=== PATIENT | female | born 1975 | race Caucasian/White ===

== ENCOUNTER 2016-10-04 07:45 | Emergency (ER) | payer OTHER ==
[~2016-10-04] VITALS: Ht 167.6 cm; Wt 103.7 kg
[~2016-10-04 07:45] MED LIST: ALDA100T PO; CHOL5000 PO; HYDR-3534 PO; IBUP800T23 PO; LEVO.05 PO; METH750T PO; MULT-120 PO; ZYRT10TA PO
[2016-10-04 07:50] VITALS: BP 159/105; PULSE 94; RESP 16; TEMP 98.5; O2SAT 98
[2016-10-04] MEDS ORDERED: NEUR300C PO (08:00)
[2016-10-04] MEDS ORDERED: ZITHTAB PO (08:27)
--- NOTE | 2016-10-04 08:35 | PD ---
HPI Chief Complaint: Cold / Flu Symptoms Time Seen by Provider: 08:22 Travel History International Travel<30 days: No Contact w/Intl Traveler<30days: No Traveled to known affect area: No History of Present Illness HPI This patient says that she has a sinus infection and requesting Zithromax antibiotic prescription. She says she takes it every 6-8 weeks when she gets an infection. Denies fever or injury. She's had some runny nose congestion and pain in the right cheek area. She says this is her typical sinus infection. Duration 3 days. PFSH Past Medical History Hx Anticoagulant Therapy: No Autoimmune Disease: No Anxiety: Yes Depression: Yes Heart Rhythm Problems: Yes (HX TACHYCARDIA) Chemotherapy: No Cerebrovascular Accident: No Diabetes: No Diminished Hearing: No Endocrine: Yes Gastrointestinal Disorders: Yes (GI BLEED) GERD: Yes Genitourinary: No Headaches: Yes Hepatitis: No Hiatal Hernia: No Herniated Disk: Yes (T-SPINE) Hypertension: Yes Immune Disorder: No Kidney Stones: Yes Musculoskeletal: Yes (HERNIATED DISCS T2,3,4) Neurologic: Yes (HX OF SMALL POCKETS OF FLUID ON L SIDE OF BRAIN--RESOLVED) Psychiatric: No Reproductive: Yes (PCOS) Respiratory: No Immunizations Current: Yes Migraines: Yes Thyroid Disease: Yes Ulcer: Yes PNEUMOCCOCAL Vaccine (Year): 2 ?: Not LMP: 09/01/12 - HYSTO Menopausal: Yes : 4 Para: 3 : 1 Ovarian Cysts: Yes Dilation and Curettage (D&C): Yes (1993) Tubal Ligation: Yes (OCT 2004) Past Surgical History Abdominal Surgery: Yes (CHOLECYSTECTOMY 2001) AICD: No Body Medical Devices: L BREAST CLIP Cholecystectomy: Yes Gynecologic Surgery: Yes (HYSTERECTOMY 08/2012) Hysterectomy: Yes Joint Replacement: No Oral Surgery: Yes (TWO TEETH REMOVED) Pacemaker: No Thoracic Surgery: Yes (L BREAST BIOPSY) Other Surgery: Yes (BENIGN FIBROUS LT BREAST MASS) Social History Alcohol Use: Yes (RARELY) Tobacco Use: No (QUIT APRIL 2016) Substance Use: No Allergies-Medications (Allergen,Severity, Reaction): Coded Allergies: Amoxicillin (Verified Allergy, Severe, ANGIOEDEMA, 10/04/16) Lisinopril (Verified Allergy, Severe, FACIAL/TONGUE SWELLING, 10/04/16) Sulfa (Verified Allergy, Severe, Rash, 10/04/16) Cipro (Verified Allergy, Intermediate, Nausea/Vomiting, 10/04/16) Dilaudid (Verified Allergy, Unknown, VOMITING, 10/04/16) Metformin (Verified Allergy, Unknown, UNKNOWN, 10/04/16) Morphine (Verified Adverse Reaction, Intermediate, VOMITS, 10/04/16) Zofran (Verified Adverse Reaction, Intermediate, Headache, 10/04/16) "IT GIVES ME A TERRIBLE HEADACHE" STATED 11/13/15 Lortab (Verified Adverse Reaction, Unknown, constipation, 10/04/16) Reported Meds & Prescriptions Reported Meds & Active Scripts Active Zithromax Z-Delgado (Azithromycin) 250 Mg Dspk 250 Mg PO DIRECTED 500 MG (2 tabs) day 1, then 1 tab days 2-5. Reported Neurontin (Gabapentin) 300 Mg Cap 300 Mg PO TID Ibuprofen 800 Mg Tab 800 Mg PO TID Synthroid (Levothyroxine Sodium) 50 Mcg Tab 50 Mcg PO DAILY Aldactone (Spironolactone) 100 Mg Tab 100 Mg PO DAILY Multivitamin Women (Multiple Vitamins W/ Minerals) 1 Tab Tab 1 Tab PO DAILY Methocarbamol 750 Mg Tab 750 Mg PO TID PRN Vitamin D3 (Cholecalciferol) 5,000 Unit Cap 5,000 Units PO DAILY Zyrtec Allergy (Cetirizine HCl) 10 Mg Tab 10 Mg PO DAILY Review of Systems General / Constitutional: No: Fever Respiratory: No: Cough Gastrointestinal: No: Vomiting, Abdominal Pain Physical Exam Narrative NECK: Symmetrical appearance, midline trachea. No mass or crepitus. Thyroid without enlargement, tenderness, or mass. SKIN: Inspection shows no rash or ulcers. Palpation shows no induration or nodules. Throat clear TMs normal Data Data Last Documented VS Vital Signs Date Time Temp Pulse Resp B/P Pulse Ox O2 Delivery O2 Flow Rate FiO2 10/04/16 07:50 98.5 94 16 159/105 98 MDM Medical Decision Making Medical Screen Exam Complete: Yes Emergency Medical Condition: Yes Medical Record Reviewed: Yes Differential Diagnosis Rhinitis, sinusitis, pharyngitis Narrative Course I have reviewed the patient's electronic medical record. Patient is a frequent visitor to the ER, 11 visits last year. Many are for sinus complaints. Patient does not appear receptive to education regarding viral versus bacterial infection. She specifically wants antibiotics and says that is what helps her. I have reviewed the patient's electronic medical record. She is a frequent visitor to the ER, 11 visits last year. Many are for sinus complaints. Patient specifically wants Zithromax. I wrote her a Z-Delgado and recommended she follow up with her physician Diagnosis Primary Impression: Sinusitis, acute maxillary Qualified Code: J01.01 - Acute recurrent maxillary sinusitis Additional Instructions: The patient was advised to follow up with their physician and return if they worsen. Med/Other Pt SpecificInfo: Prescription(s) given Scripts Azithromycin (Zithromax Z-Delgado)250 Mg [id number] Mg PO DIRECTED #1 DSPK Ref 0 500 MG (2 tabs) day 1, then 1 tab days 2-5. Prov:Curtis Weinstein MD 10/04/16 Disposition: 01 DISCHARGE HOME Condition: Stable Curtis Weinstein MD Oct 04, 2016 08:35
[2016-10-04 08:40] VITALS: BP 152/89
== END 2016-10-04 08:41 | disposition home or self-care (01) ==
LOC: PHEFT 07:45
DX: J01.00 Acute maxillary sinusitis, unspecified (principal); I10 Essential (primary) hypertension; F41.8 Other specified anxiety disorders
CPT/HCPCS: 99283

== ENCOUNTER 2016-12-15 04:56 | Emergency (ER) | payer OTHER ==
[~2016-12-15] VITALS: Ht 167.6 cm; Wt 106.7 kg
[~2016-12-15 04:56] MED LIST changes: -HYDR-3534 PO; +NEUR300C PO; +ZITHTAB PO
[2016-12-15 05:02] VITALS: BP 146/95; PULSE 81; RESP 16; TEMP 98; O2SAT 96
[2016-12-15 05:10] VITALS: BP 146/95; PULSE 81; RESP 16; TEMP 98; O2SAT 96
[2016-12-15] MEDS ORDERED: AZITHROMYCIN 250 MG TAB PO ONE (05:45)
[2016-12-15] MEDS ORDERED: ZITHTAB PO (05:48)
[2016-12-15 05:50] VITALS: BP 146/90
--- NOTE | 2016-12-15 05:50 | PD ---
HPI Chief Complaint: ENT Complaint Time Seen by Provider: 05:36 Travel History International Travel<30 days: No Contact w/Intl Traveler<30days: No Traveled to known affect area: No History of Present Illness HPI 41-year-old female presents to the emergency department by private transportation for complaint of possible recurrent sinus infection. Patient states she has frequent acute sinus infections with history of chronic sinusitis. Patient is scheduled to have sinus surgery 12/30/16. Patient has had low-grade temperature elevation with increasing sinus pressure and pain to the right frontal and maxillary and ethmoid sinus distribution which is her typical side of involvement. Patient also has earache. Patient hasn't taking [id number] ibuprofen and cold/sinus medication with some symptom relief but presents now for antibiotic prescription. Patient states she planned to see her managing physician today but due to the pain awakening her from sleep she presents now for further evaluation. No sore throat no nausea no vomiting no chest pain no shortness of breath no productive cough occasional wheezing due to her environmental allergies. Patient does not have history of asthma. No report of abdominal pain flank pain urinary symptoms. Patient denies as she is status post hysterectomy as of 2011. No report of epistaxis. PFSH Past Medical History Narrative Medical Anxiety depression tachycardia GERD headaches hypertension rhinosinusitis sinusitis deviated septum kidney stones polycystic ovary syndrome hypothyroidism peptic ulcer disease tubal ligation and D&C cholecystectomy hysterectomy and breast biopsy no tobacco use Hx Anticoagulant Therapy: No Autoimmune Disease: No Anxiety: Yes Depression: Yes Heart Rhythm Problems: Yes (HX TACHYCARDIA) Chemotherapy: No Cerebrovascular Accident: No Diabetes: No Diminished Hearing: No Endocrine: Yes Gastrointestinal Disorders: Yes (GI BLEED) GERD: Yes Genitourinary: No Headaches: Yes Hepatitis: No Hiatal Hernia: No Herniated Disk: Yes (T-SPINE) Hypertension: Yes Immune Disorder: No Kidney Stones: Yes Musculoskeletal: Yes (HERNIATED DISCS T2,3,4) Neurologic: Yes (HX OF SMALL POCKETS OF FLUID ON L SIDE OF BRAIN--RESOLVED) Psychiatric: No Reproductive: Yes (PCOS) Respiratory: No Immunizations Current: Yes Migraines: Yes Thyroid Disease: Yes Ulcer: Yes PNEUMOCCOCAL Vaccine (Year): 2 ?: Not LMP: august 2012 Menopausal: Yes : 4 Para: 3 : 1 Ovarian Cysts: Yes Dilation and Curettage (D&C): Yes (1993) Tubal Ligation: Yes (OCT 2004) Past Surgical History Abdominal Surgery: Yes (CHOLECYSTECTOMY 2001) AICD: No Body Medical Devices: L BREAST CLIP Cholecystectomy: Yes Gynecologic Surgery: Yes (HYSTERECTOMY 08/2012) Hysterectomy: Yes Joint Replacement: No Oral Surgery: Yes (TWO TEETH REMOVED) Pacemaker: No Thoracic Surgery: Yes (L BREAST BIOPSY) Other Surgery: Yes (BENIGN FIBROUS LT BREAST MASS) Social History Alcohol Use: Yes (rarely) Tobacco Use: No (QUIT APRIL 2016) Substance Use: No Allergies-Medications (Allergen,Severity, Reaction): Coded Allergies: Amoxicillin (Verified Allergy, Severe, ANGIOEDEMA, 12/15/16) Lisinopril (Verified Allergy, Severe, FACIAL/TONGUE SWELLING, 12/15/16) Sulfa (Verified Allergy, Severe, Rash, 12/15/16) Cipro (Verified Allergy, Intermediate, Nausea/Vomiting, 12/15/16) Dilaudid (Verified Allergy, Unknown, VOMITING, 12/15/16) Metformin (Verified Allergy, Unknown, UNKNOWN, 12/15/16) Morphine (Verified Adverse Reaction, Intermediate, VOMITS, 12/15/16) Zofran (Verified Adverse Reaction, Intermediate, Headache, 12/15/16) "IT GIVES ME A TERRIBLE HEADACHE" STATED 11/13/15 Lortab (Verified Adverse Reaction, Unknown, constipation, 12/15/16) Reported Meds & Prescriptions Reported Meds & Active Scripts Active Reported Neurontin (Gabapentin) 300 Mg Cap 300 Mg PO TID Ibuprofen 800 Mg Tab 800 Mg PO TID Synthroid (Levothyroxine Sodium) 50 Mcg Tab 50 Mcg PO DAILY Aldactone (Spironolactone) 100 Mg Tab 100 Mg PO DAILY Multivitamin Women (Multiple Vitamins W/ Minerals) 1 Tab Tab 1 Tab PO DAILY Methocarbamol 750 Mg Tab 750 Mg PO TID PRN Vitamin D3 (Cholecalciferol) 5,000 Unit Cap 5,000 Units PO DAILY Zyrtec Allergy (Cetirizine HCl) 10 Mg Tab 10 Mg PO DAILY Review of Systems Except as stated in HPI: all other systems reviewed are Neg General / Constitutional: Positive: Fever, No: Chills HENT: Positive: Congestion (subjective) Cardiovascular: No: Chest Pain or Discomfort Respiratory: No: Shortness of Breath Gastrointestinal: No: Vomiting Genitourinary: No: Flank Pain Musculoskeletal: No: Myalgias, Arthralgias Skin: No Rash Neurologic: No: Dizziness Psychiatric: No: Anxiety Hematologic/Lymphatic: No: Lymph Node Enlargement Physical Exam Narrative GENERAL: Well-developed well-nourished female in no acute distress no respiratory distress SKIN: Warm and dry. HEAD: Normocephalic. EYES: No scleral icterus. No injection or drainage. ENT: Mucous membranes moist airway is patent tympanic membranes were no redness no dullness no loss of landmarks sinuses tender percussion over the frontal and maxillary sinuses on the right. NECK: Supple, trachea midline. No JVD or lymphadenopathy. No meningismus or nuchal rigidity CARDIOVASCULAR: Regular rate and rhythm without murmurs, gallops, or rubs. RESPIRATORY: Breath sounds equal bilaterally. No accessory muscle use. GASTROINTESTINAL: Abdomen soft, non-tender, nondistended. MUSCULOSKELETAL: No cyanosis, or edema. BACK: Nontender without obvious deformity. No CVA tenderness. Data Data Last Documented VS Vital Signs Date Time Temp Pulse Resp B/P Pulse Ox O2 Delivery O2 Flow Rate FiO2 12/15/16 05:15 81 16 12/15/16 05:10 98.0 146/95 96 Orders Azithromycin (Zithromax) (12/15/16 05:45) [facility] Medical Decision Making Medical Screen Exam Complete: Yes Emergency Medical Condition: Yes Medical Record Reviewed: Yes Differential Diagnosis Acute sinusitis, rhinosinusitis, environmental allergies Narrative Course Patient with percussible tenderness to the right frontal and maxillary sinus with recurrent acute on chronic sinus symptoms with subjective fever/low-grade temperature elevation report is scheduled to have sinus surgery 12/30/16. Review of medical records numerous visits for sinus related complaints. Patient presents requesting prescription for antibiotic azithromycin specifically if she states this medication is effective for her symptoms. Concerned that symptoms are more environmental versus are related however patient states that she is scheduled to have surgery in 2 weeks and this is typical of her presentation when she has acute bacterial sinusitis. Patient provided a prescription for azithromycin and first dose of azithromycin provided in the emergency department. 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 Prov:Misa Cabrales MD 12/15/16 Disposition: 01 DISCHARGE HOME Condition: Stable Misa Cabrales MD Dec 15, 2016 05:50
== END 2016-12-15 05:56 | disposition home or self-care (01) ==
LOC: PHED 04:56
DX: J01.00 Acute maxillary sinusitis, unspecified (principal); Z87.891 Personal history of nicotine dependence
CPT/HCPCS: 99283

== ENCOUNTER 2017-01-06 12:42 | Emergency (ER) | payer OTHER ==
[~2017-01-06] VITALS: Ht 167.6 cm; Wt 106.4 kg
[2017-01-06 12:48] VITALS: BP 148/96; PULSE 89; RESP 16; TEMP 98.3; O2SAT 97
--- NOTE | 2017-01-06 13:04 | PD ---
HPI Chief Complaint: ENT Complaint Time Seen by Provider: 12:56 Travel History International Travel<30 days: No Contact w/Intl Traveler<30days: No Traveled to known affect area: No History of Present Illness HPI Patient is a 41-year-old female presenting to emergency evaluation of possible sinusitis. Patient states that she has chronic sinusitis and is having sinus surgery next week with Dr. Cardona. Her present symptoms have been ongoing for 4 -5 days, she reports pressure over the right ethmoid sinus, right ear pressure, a dull headache, she states that she had a low-grade fever this morning. She denies any chest pain, shortness of breath, cough, abdominal pain. PFSH Past Medical History Hx Anticoagulant Therapy: No Autoimmune Disease: No Anxiety: Yes Depression: Yes Chemotherapy: No Cerebrovascular Accident: No Diabetes: No Diminished Hearing: No Gastrointestinal Disorders: Yes (GI BLEED) GERD: Yes Genitourinary: No Hepatitis: No Hiatal Hernia: No Herniated Disk: Yes (T-SPINE) Hypertension: Yes Immune Disorder: No Kidney Stones: Yes Psychiatric: No Reproductive: Yes (PCOS) Respiratory: No Immunizations Current: Yes Migraines: Yes Thyroid Disease: Yes Ulcer: Yes PNEUMOCCOCAL Vaccine (Year): 2 Menopausal: Yes : 4 Para: 3 : 1 Ovarian Cysts: Yes Dilation and Curettage (D&C): Yes (1993) Tubal Ligation: Yes (OCT 2004) Past Surgical History AICD: No Body Medical Devices: L BREAST CLIP Cholecystectomy: Yes Hysterectomy: Yes Joint Replacement: No Pacemaker: No Other Surgery: Yes (BENIGN FIBROUS LT BREAST MASS) Social History Alcohol Use: Yes (rarely) Tobacco Use: No (QUIT APRIL 2016) Substance Use: No Allergies-Medications (Allergen,Severity, Reaction): Coded Allergies: Amoxicillin (Verified Allergy, Severe, ANGIOEDEMA, 01/06/17) Lisinopril (Verified Allergy, Severe, FACIAL/TONGUE SWELLING, 01/06/17) Sulfa (Verified Allergy, Severe, Rash, 01/06/17) Cipro (Verified Allergy, Intermediate, Nausea/Vomiting, 01/06/17) Dilaudid (Verified Allergy, Unknown, VOMITING, 01/06/17) Metformin (Verified Allergy, Unknown, UNKNOWN, 01/06/17) Morphine (Verified Adverse Reaction, Intermediate, VOMITS, 01/06/17) Zofran (Verified Adverse Reaction, Intermediate, Headache, 01/06/17) "IT GIVES ME A TERRIBLE HEADACHE" STATED 11/13/15 Lortab (Verified Adverse Reaction, Unknown, constipation, 01/06/17) Reported Meds & Prescriptions Reported Meds & Active Scripts Active Reported Neurontin (Gabapentin) 300 Mg Cap 300 Mg PO TID Synthroid (Levothyroxine Sodium) 50 Mcg Tab 50 Mcg PO DAILY Aldactone (Spironolactone) 100 Mg Tab 100 Mg PO DAILY Methocarbamol 750 Mg Tab 750 Mg PO TID PRN Zyrtec Allergy (Cetirizine HCl) 10 Mg Tab 10 Mg PO DAILY Review of Systems Except as stated in HPI: all other systems reviewed are Neg General / Constitutional: Positive: Fever Eyes: No: Blurred Vision, Visual changes HENT: Positive: Headaches, Earache Cardiovascular: No: Chest Pain or Discomfort Respiratory: No: Cough, Shortness of Breath Gastrointestinal: No: Nausea, Vomiting, Diarrhea, Abdominal Pain Neurologic: No: Weakness, Dizziness, Syncope Physical Exam Narrative GENERAL: Well-nourished, well-developed patient. SKIN: Focused skin assessment warm/dry. HEAD: Normocephalic. Tenderness to palpation over right ethmoid sinus. EARS: Bilateral pinnae and external canals appear within normal limits. Bilateral tympanic membranes without erythema, dullness or perforation. MOUTH: Mucous membranes moist, no lesions, tongue and gums appear normal. EYES: No scleral icterus. No injection or drainage. NECK: Supple, trachea midline. No JVD or lymphadenopathy. CARDIOVASCULAR: Regular rate and rhythm without murmurs, gallops, or rubs. RESPIRATORY: Breath sounds equal bilaterally. No accessory muscle use. GASTROINTESTINAL: Abdomen soft, non-tender, nondistended. MUSCULOSKELETAL: No cyanosis, or edema. BACK: Nontender without obvious deformity. No CVA tenderness. Data Data Last Documented VS Vital Signs Date Time Temp Pulse Resp B/P Pulse Ox O2 Delivery O2 Flow Rate FiO2 01/06/17 12:48 98.3 89 16 148/96 97 MDM Medical Decision Making Medical Screen Exam Complete: Yes Emergency Medical Condition: Yes Interpretation(s) Vital Signs Date Time Temp Pulse Resp B/P Pulse Ox O2 Delivery O2 Flow Rate FiO2 01/06/17 12:48 98.3 89 16 148/96 97 Differential Diagnosis Viral URI versus sinusitis versus migraine versus otitis media versus otitis externa versus other Narrative Course Patient is a 41-year-old female presented to emergency department for evaluation of 4-5 days of headache, right sinus pressure, right ear pressure. Patient has a history of chronic sinusitis secondary to deviated septum which she states she'll be having surgery to repair next week with Dr. Cardona. Vital signs are stable, she is afebrile currently. She with right with a prescription for clindamycin due to her penicillin allergy. Also be provided with a prescription for fluticasone nasal spray. She is encouraged follow-up with her primary doctor and Dr. Cardona as scheduled. She is encouraged to return to emergency department for any new or worsening symptoms. Patient verbalized understanding of these instructions. Patient is stable for discharge. Diagnosis Primary Impression: Sinusitis Qualified Code: J32.2 - Ethmoid sinusitis, unspecified chronicity Referrals: Maurisio Cardona MD Primary Care Physician Patient Instructions: General Instructions, Sinusitis (ED) Additional Instructions: Follow-up with Dr. Cardona as scheduled Follow-up with your primary doctor Return to emergency department for any new or worsening symptoms Med/Other Pt SpecificInfo: Prescription(s) given Scripts Fluticasone Nasal [place] 50 Mcg/Act [id number] Mcg EACH NARE DAILY #1 BOTTLE Ref 0 50 mcg/spray Prov:Iliana Escalona 01/06/17 Clindamycin 150 Mg [id number] Mg PO Q8HR 10 Days Ref 0 Prov:Iliana Escalona 01/06/17 Disposition: 01 DISCHARGE HOME Condition: Stable Iliana Escalona Jan 06, 2017 13:04
[2017-01-06] MEDS ORDERED: CLIN1CAP5 PO (13:14)
[2017-01-06] MEDS ORDERED: FLUT50SP EACH NARE (13:14)
== END 2017-01-06 13:44 | disposition home or self-care (01) ==
LOC: PHEFT 12:42
DX: J32.9 Chronic sinusitis, unspecified (principal); K21.9 Gastro-esophageal reflux disease without esophagitis; I10 Essential (primary) hypertension; Z87.442 Personal history of urinary calculi; E28.2 Polycystic ovarian syndrome; Z87.891 Personal history of nicotine dependence
CPT/HCPCS: 99283

== ENCOUNTER 2017-01-13 06:14 | Observation (INO) | payer OTHER ==
[~2017-01-13] VITALS: Ht 167.6 cm; Wt 110.6 kg
[~2017-01-13 06:14] MED LIST changes: -CHOL5000 PO; +CLIN1CAP5 PO; +FLUT50SP EACH NARE; -IBUP800T23 PO; -MULT-120 PO; -ZITHTAB PO
[2017-01-13 06:50] VITALS: BP 172/103; PULSE 87; RESP 16; TEMP 97.8; O2SAT 97
[2017-01-13] MEDS ORDERED: LACTATED RINGER'S 1000 ML INJ 1,000 ML ONE (06:59)
[2017-01-13] MEDS ORDERED: CLINDAMYCIN PHOS 600 MG/4 ML VIAL ONE (07:01)
[2017-01-13] MEDS ORDERED: SODIUM CHLORIDE 0.9% INJ 100 ML ONE (07:02)
[2017-01-13] MEDS ORDERED: LIDOCAINE 1%/EPINEPHrine 1:100,000 SOLN 30 ML VIAL ONE (07:06)
[2017-01-13] MEDS ORDERED: OXYMETAZOLINE HCL 0.05% 15 ML NASAL SPRAY ONE ×2 (07:06)
[2017-01-13] MEDS ORDERED: VITA400C28 (07:17)
[2017-01-13] MEDS ORDERED: ACETAMINOPHEN 1000 MG/100 ML VIAL IV ONE (07:27)
[2017-01-13] MEDS: BACITRACIN TOP OINT 15 GM TUBE ONE ×2 (08:06→09:10)
[2017-01-13] MEDS ORDERED: CLINDAMYCIN 600 MG/NS 100 ML IV ONE ×2 (11:15)
[2017-01-13] MEDS ORDERED: ONDANSETRON HCL 4 MG/2 ML VIAL IV PRN (11:15)
[2017-01-13] MEDS ORDERED: PROMETHAZINE INJ 25 MG/ML VIAL ONE (11:26)
[2017-01-13] MEDS ORDERED: VITA100064 PO (11:33)
[2017-01-13] MEDS ORDERED: PROPOFOL 200 MG/20 ML AMP IV ONE (12:00)
[2017-01-13] MEDS: ACETAMINOPHEN/HYDROcodone 325 MG/5 MG TAB PO PRN ×3 (13:34→21:56)
[2017-01-13] MEDS: GABAPENTIN 300 MG CAP PO SCH ×2 (13:34→17:31)
[2017-01-13] MEDS: LACTATED RINGER'S 1000 ML INJ 1,000 ML IV SCH ×2 (13:36→22:58)
[2017-01-13 14:00] VITALS: BP 156/86; PULSE 86; RESP 20; TEMP 97.2; O2SAT 97
[2017-01-13 15:46] VITALS: O2SAT 97
[2017-01-13 16:00] VITALS: BP 142/86; PULSE 94; RESP 20; TEMP 98.4; O2SAT 96
[2017-01-13] MEDS: CLINDAMYCIN 600 MG/NS 100 ML IV SCH ×4 (16:39→22:58)
[2017-01-13 20:00] VITALS: BP 140/91; PULSE 103; RESP 20; TEMP 96.5; O2SAT 94
[2017-01-13 20:50] VITALS: O2SAT 95
[2017-01-14] VITALS: BP 128/94; PULSE 96; RESP 20; TEMP 96.2; O2SAT 97
[2017-01-14] MEDS: ACETAMINOPHEN/HYDROcodone 325 MG/5 MG TAB PO PRN (02:53)
[2017-01-14 04:00] VITALS: BP 152/88; PULSE 85; RESP 20; TEMP 96; O2SAT 98
[2017-01-14] MEDS ORDERED: LEVOTHYROXINE SODIUM 50 MCG TAB PO SCH (06:00)
[2017-01-14] MEDS: GABAPENTIN 300 MG CAP PO SCH (07:55)
--- NOTE | 2017-01-14 12:57 | MP ---
cc: MIMI CARDONA M.D. DATE OF SURGERY: January 13, [address] Mimi Cardona. PREOPERATIVE DIAGNOSIS 1. Chronic pansinusitis. 2. Nasal airway obstruction. 3. Nasoseptal deviation. 4. Hypertrophy of inferior turbinates. POSTOPERATIVE DIAGNOSIS 1. Chronic pansinusitis. 2. Nasal airway obstruction. 3. Nasoseptal deviation. 4. Hypertrophy of inferior turbinates. OPERATION PERFORMED 1. Open repair nasal septal fracture. 2. Bilateral submucosal resection of inferior turbinates. 3. Bilateral endoscopic total ethmoidectomy. 4. Bilateral endoscopic maxillary antrostomy with removal of maxillary sinus tissue. 5. Bilateral endoscopic sphenoidotomy with removal of sphenoid sinus contents. 6. Bilateral endoscopic exploration of frontal sinus ducts with balloon sinuplasty dilation. INDICATIONS Documented in the history and physical. DESCRIPTION OF OPERATION The patient was taken to OR #2 and placed in the supine position. Following induction of general anesthesia and intubation the nose was packed bilaterally with cotton pledgets saturated in 0.05% Oxymetazoline. Septal mucosa and inferior turbinates were injected with a total of 14 mL of 2% Xylocaine with epinephrine 1:100,000 and she was then prepped and draped for surgery. The packing was removed and a selwyn-transfixion incision was made in the left nasal vestibule. This incision, the mucosa of septum was elevated bilaterally as far as the junction of the bony cartilaginous septum and this revealed the quadrangular cartilage which showed evidence of severe deviation bilaterally to the right, inferiorly into the left, posteriorly at the junction with bone. A cumulative area of 2 x 3 cm was removed preserving 1.5 cm dorsal and caudal cartilaginous struts. Mucosa was then elevated from the bony septum and the maxillary crest and these were removed using Luis Holden forceps on the bony septum and a 6-mm Afton chisel on the maxillary crest. The anterior nasal spine was preserved during this process. The incision was then closed with a running suture of 4-0 Chromic and the mucosal layers of septum were approximated to each other with a quilting stitch of 4-0 plain gut. The inferior turbinates were addressed next, they were fractured out medially and stab incisions were made along their inferior surfaces and through these incisions submucosal soft tissue was reduced using a curette and preserving the conchal bone. The incision was then cauterized using suction Bovie at 35 arambula and the remnants of the inferior turbinates were then re-lateralized to the lateral nasal wall. From this point forward the operation was completed using endoscopic visualization beginning with further injection of the lidocaine and epinephrine into the attachments of the middle turbinates, the uncinate processes and the anterior and posterior ethmoid cells. Additional 10 mL was injected. The left side was addressed first beginning with amputation of the middle turbinate using through cutting Blakesley forceps and the power microdebrider. This was carried back to the posterior attachment of the middle turbinate. Next, the uncinate process was removed with a sickle knife exposing the ethmoid bulla and the ethmoid bulla was then bluntly penetrated using Blakesley forceps and then the anterior and posterior cells were exenterated with blunt and power dissection back as far as the sphenoid rostrum. The basal lamella of the middle turbinate was reduced medially to laterally to allow access into the posterior ethmoid cells. The superior turbinate was preserved during this process. When this was completed the maxillary ostium was enlarged using Stammberger forceps and the power debrider and the cavity was debrided of thick polypoid tissue and mucopurulent material. The sphenoid sinus was addressed next. The duct was probed using a #10 suction and it was also entered through the rostrum in the posterior ethmoid. ___ then were enlarged with the power microdebrider and thickened inflamed mucosa was then debrided from the sphenoid sinus using a Blakesley forceps. The left sinus cavities were then irrigated with iced saline and the cavities were packed with cotton pledgets saturated in Oxymetazoline. They remained in place while the right side was operated in the same fashion beginning with amputation of middle turbinate followed by uncinectomy and exenteration of the anterior and posterior ethmoids. The right maxillary ostium was enlarged with Stammberger forceps and the power debrider and the cavity was debrided of the inflamed mucosa lining the nance of the right maxillary sinus. The sphenoid sinus ostium was enlarged through the natural ostium using a #10 suction and the power debrider and the cavity was debrided of inflamed mucosa. This was all included in the specimen labeled right sinus contents. This side was then also irrigated and was packed with cotton pledgets saturated in Oxymetazoline. Both sides were packed while the frontal duct dilations were completed using the Acclarent balloon technique. The guidewire was advanced into the left frontal duct and verified to be in the left frontal sinus. The balloon was then advanced over the wire and inflated to a pressure of 12 atmospheres at the superior limit at the midpoint and inferiorly at the junction with the anterior ethmoids. The balloon was then removed and the duct was verified patent all the way into the frontal sinus. The small fragments of bone and soft tissue were removed from the duct to maintain patency. The right side was then operated in the same fashion with dilation of the balloon at three levels. This was also debrided of some bone and soft tissue fragments. The cottonoid pledgets then were removed. The sinuses once again irrigated and suctioned and then filled with Stammberger sinus foam into the sphenoid, ethmoid and maxillary sinuses bilaterally. The inferior nasal vault was filled with Merocel tampons coated in bacitracin ointment and the procedure was terminated. The patient was reversed from anesthesia and taken to recovery in good condition. There were no complications. Blood loss was 300 mL. MD DEBBIE Arreguin/MARÍA ELENA /1:11 PM /12:32 PM
== END 2017-01-14 08:50 | disposition home or self-care (01) ==
LOC: PHSDC 06:14 → PH3B 13:44
PROVIDERS: ADMIT Otolaryngology; ATTEND Otolaryngology
DX: J32.4 Chronic pansinusitis (principal); J98.8 Other specified respiratory disorders; J34.2 Deviated nasal septum; J34.3 Hypertrophy of nasal turbinates
CPT/HCPCS: 00160; 30140; 30520; 31255; 31267; 31288; 31296; 88305; 88311; 94762; G0378; J0131; J2550; J3010; J7120

== ENCOUNTER 2017-01-17 21:52 | Emergency (ER) | payer OTHER ==
[~2017-01-17] VITALS: Ht 167.6 cm; Wt 107.8 kg
[~2017-01-17 21:52] MED LIST changes: -FLUT50SP EACH NARE; +VITA100064 PO
[2017-01-17 21:55] VITALS: BP 158/99; PULSE 110; RESP 22; TEMP 98.4; O2SAT 100
--- NOTE | 2017-01-17 22:13 | PD ---
HPI Chief Complaint: Fever Time Seen by Provider: 22:01 Travel History International Travel<30 days: No Contact w/Intl Traveler<30days: No Traveled to known affect area: No History of Present Illness HPI The patient is a 41-year-old female that had septoplasty surgery on Thursday, 3 days ago. She states that she has had low-grade fever since . She completed her antibiotics on Thursday, this was clindamycin. She is allergic to amoxicillin. She has a slight cough. She has generalized myalgias. She denies any nausea, vomiting or diarrhea. She denies any dysuria, frequency or urgency or flank pain. PFSH Past Medical History Hx Anticoagulant Therapy: No Arthritis: No Asthma: No Autoimmune Disease: No Anxiety: Yes Depression: Yes Heart Rhythm Problems: Yes (HX TACHYCARDIA) Cancer: No Cardiovascular Problems: No (HX HTN) High Cholesterol: No Chemotherapy: No Chest Pain: No Congestive Heart Failure: No COPD: No Cerebrovascular Accident: No Diabetes: No Diminished Hearing: No Endocrine: Yes Gastrointestinal Disorders: No (GI BLEED) GERD: Yes Genitourinary: No Headaches: Yes Hepatitis: No Hiatal Hernia: No Herniated Disk: Yes (T-SPINE) Hypertension: Yes ("SOMETIMES") Immune Disorder: No Kidney Stones: Yes Medical other: No Musculoskeletal: Yes (HERNIATED DISCS T2,3,4, SPINAL STENOSIS) Neurologic: Yes (HX OF SMALL POCKETS OF FLUID ON L SIDE OF BRAIN (2008) -- RESOLVED) Psychiatric: No Reproductive: Yes (PCOS) Respiratory: Yes (SLEEP APNEA) Immunizations Current: Yes Migraines: Yes Sleep Apnea: Yes Thyroid Disease: Yes Ulcer: Yes Tetanus Vaccination: > 5 Years Influenza Vaccination: Yes PNEUMOCCOCAL Vaccine (Year): 2 ?: Not LMP: 2011 Menopausal: Yes : 4 Para: 3 : 1 Ovarian Cysts: Yes Dilation and Curettage (D&C): Yes (1993) Tubal Ligation: Yes (OCT 2004) Past Surgical History Abdominal Surgery: Yes (CHOLECYSTECTOMY 2001) AICD: No Body Medical Devices: L BREAST CLIP, lower cemented retainer on teeth Cholecystectomy: Yes Ear Surgery: No Endocrine Surgery: No Eye Surgery: No Gynecologic Surgery: Yes (HYSTERECTOMY 08/2012) Hysterectomy: Yes Joint Replacement: No Oral Surgery: Yes (TWO TEETH REMOVED) Pacemaker: No Thoracic Surgery: Yes (L BREAST BIOPSY) Other Surgery: Yes (BENIGN FIBROUS LT BREAST MASS) Social History Alcohol Use: Yes (rarely) Tobacco Use: No (QUIT APRIL 2016) Substance Use: No Allergies-Medications (Allergen,Severity, Reaction): Coded Allergies: Amoxicillin (Verified Allergy, Severe, ANGIOEDEMA, 01/17/17) Lisinopril (Verified Allergy, Severe, FACIAL/TONGUE SWELLING, 01/17/17) Metformin (Verified Allergy, Severe, FACE SWELLING, 01/17/17) Sulfa (Verified Allergy, Severe, Rash, 01/17/17) Cipro (Verified Allergy, Intermediate, Nausea/Vomiting, 01/17/17) Dilaudid (Verified Allergy, Unknown, VOMITING, 01/17/17) Morphine (Verified Adverse Reaction, Intermediate, VOMITS, 01/17/17) Zofran (Verified Adverse Reaction, Intermediate, Headache, 01/17/17) "IT GIVES ME A TERRIBLE HEADACHE" STATED 11/13/15 Reported Meds & Prescriptions Reported Meds & Active Scripts Active Clindamycin (Clindamycin HCl) 150 Mg Cap 300 Mg PO Q8HR 10 Days Reported Vitamin D (Cholecalciferol) 1,000 Unit Tab 1,000 Units PO DAILY Neurontin (Gabapentin) 300 Mg Cap 300 Mg PO TID Synthroid (Levothyroxine Sodium) 50 Mcg Tab 50 Mcg PO DAILY Aldactone (Spironolactone) 100 Mg Tab 100 Mg PO DAILY Methocarbamol 750 Mg Tab 750 Mg PO TID PRN Zyrtec Allergy (Cetirizine HCl) 10 Mg Tab 10 Mg PO DAILY Physical Exam Narrative GENERAL: The patient is alert, oriented 3 and slight apparent distress with her myalgias. She is in no respiratory distress. Her vital signs show blood pressure 158/99 with heart rate of 110 and respirations 22 with oximetry 100% on room air. Temperature is 98.4. SKIN: Focused skin assessment warm/dry. No skin rash is seen. HEAD: Atraumatic. Normocephalic. EYES: Pupils equal and round. No scleral icterus. No injection or drainage. ENT: No nasal bleeding or discharge. Mucous membranes pink and moist. Throat is clear without exudate, erythema or abscess. The nose shows tenderness across the septum and generalized swelling. No active blood is coming down the posterior pharyngeal wall are anteriorly from the nose. NECK: Trachea midline. No JVD. There is no meningismus present. CARDIOVASCULAR: Regular rate and rhythm. No murmur appreciated. RESPIRATORY: No accessory muscle use. Clear to auscultation. Breath sounds equal bilaterally. GASTROINTESTINAL: Abdomen soft, non-tender, nondistended. Hepatic and splenic margins not palpable. MUSCULOSKELETAL: No obvious deformities. No clubbing. No cyanosis. No edema. NEUROLOGICAL: Awake and alert. No obvious cranial nerve deficits. Motor grossly within normal limits. Normal speech. PSYCHIATRIC: Appropriate mood and affect; insight and judgment normal. Data Data Last Documented VS Vital Signs Date Time Temp Pulse Resp B/P Pulse Ox O2 Delivery O2 Flow Rate FiO2 01/17/17 22:16 98 18 141/86 100 Room Air 01/17/17 21:55 98.4 Orders Influenzae A/B Antigen (01/17/17 22:13) [facility] Medical Decision Making Medical Screen Exam Complete: Yes Emergency Medical Condition: Yes Medical Record Reviewed: Yes Interpretation(s) The influenza a/B antigen is negative for flu a and flu B. Differential Diagnosis Sinusitis, cellulitis nose, pneumonia, pharyngitis, flu syndrome, nonspecific viral syndrome Narrative Course The patient probably has sinusitis. She states she has done well on Zithromax and will be given a prescription for Zithromax. Diagnosis Primary Impression: Sinusitis Additional Instructions: The Zithromax is one tablet daily for 5 days. Follow-up next week with your primary care physician. Med/Other Pt SpecificInfo: Prescription(s) given Scripts Azithromycin (Zithromax)500 Mg [id number] Mg PO DAILY 5 Days Ref 0 Prov:Pee Bliss MD 01/17/17 Disposition: 01 DISCHARGE HOME Condition: Stable Pee Bliss MD Jan 17, 2017 22:13
[2017-01-17 22:16] VITALS: BP 141/86; PULSE 98; RESP 18; O2SAT 100
[2017-01-17] MEDS ORDERED: ZITH500T PO (23:21)
[2017-01-17] MEDS ORDERED: AZITHROMYCIN 250 MG TAB PO ONE (23:30)
[2017-01-17 23:31] VITALS: PULSE 92; RESP 18; O2SAT 99
== END 2017-01-17 23:44 | disposition home or self-care (01) ==
LOC: PHED 21:52
DX: J32.9 Chronic sinusitis, unspecified (principal)
CPT/HCPCS: 87804; 99283

== ENCOUNTER 2017-04-13 11:52 | Observation (INO) | payer OTHER ==
[2017-04-13] VITALS (12 sets, daily range): BP systolic 142–181; BP diastolic 83–100; PULSE 83–96; RESP 16–18; TEMP 97.1–98.2; O2SAT 95–98
[~2017-04-13 11:52] MED LIST changes: +ZITH500T PO
[2017-04-13] MEDS ORDERED: CYCL1TAB29 PO (12:06)
--- NOTE | 2017-04-13 12:22 | PD ---
HPI Chief Complaint: Chest Pain Time Seen by Provider: 12:13 Travel History International Travel<30 days: No Contact w/Intl Traveler<30days: No Traveled to known affect area: No History of Present Illness HPI The patient was seen and examined in the presence of the nurse. This patient complains of chest pain. Started at 10:30 this morning while she was seated at her desk at work. Duration 2 hours. Severity is moderate. Located in her center sternal area felt like a heaviness and a pressure. It did radiate up to her jaw and down her left arm. sHe is currently improved. She is going through a lot of stress as she is going through a bad divorce now. No prior history of cardiac disease. No stress testing in her history. No alleviating factors. PFSH Past Medical History Hx Anticoagulant Therapy: No Arthritis: No Asthma: No Autoimmune Disease: No Anxiety: Yes Depression: Yes Heart Rhythm Problems: Yes (HX TACHYCARDIA) Cancer: No Cardiovascular Problems: No (HX HTN) High Cholesterol: No Chemotherapy: No Chest Pain: No Congestive Heart Failure: No COPD: No Cerebrovascular Accident: No Diabetes: No Diminished Hearing: No Endocrine: Yes Gastrointestinal Disorders: No (GI BLEED) GERD: Yes Genitourinary: No Headaches: Yes Hepatitis: No Hiatal Hernia: No Herniated Disk: Yes (T-SPINE) Hypertension: Yes ("SOMETIMES") Immune Disorder: No Kidney Stones: Yes Musculoskeletal: Yes (CHRONIC BACK PAIN) Neurologic: Yes (HX OF SMALL POCKETS OF FLUID ON L SIDE OF BRAIN (2008) -- RESOLVED) Psychiatric: No Reproductive: Yes (PCOS) Immunizations Current: Yes Migraines: Yes Sleep Apnea: Yes Thyroid Disease: Yes Ulcer: Yes PNEUMOCCOCAL Vaccine (Year): 2 ?: Not Menopausal: Yes : 4 Para: 3 : 1 Ovarian Cysts: Yes Dilation and Curettage (D&C): Yes (1993) Tubal Ligation: Yes (OCT 2004) Past Surgical History Abdominal Surgery: Yes (CHOLECYSTECTOMY 2001) AICD: No Body Medical Devices: L BREAST CLIP, lower cemented retainer on teeth Cholecystectomy: Yes Ear Surgery: No Endocrine Surgery: No Eye Surgery: No Gynecologic Surgery: Yes (HYSTERECTOMY 08/2012) Hysterectomy: Yes Joint Replacement: No Oral Surgery: Yes (TWO TEETH REMOVED) Pacemaker: No Thoracic Surgery: Yes (L BREAST BIOPSY) Other Surgery: Yes (BENIGN FIBROUS LT BREAST MASS, SINUS) Social History Alcohol Use: Yes (COUPLE TIMES PER MONTH) Tobacco Use: No (QUIT APRIL 2016) Substance Use: No Allergies-Medications (Allergen,Severity, Reaction): Coded Allergies: Amoxicillin (Verified Allergy, Severe, ANGIOEDEMA, 04/13/17) Lisinopril (Verified Allergy, Severe, FACIAL/TONGUE SWELLING, 04/13/17) Metformin (Verified Allergy, Severe, FACE SWELLING, 04/13/17) Sulfa (Verified Allergy, Severe, Rash, 04/13/17) Cipro (Verified Allergy, Intermediate, Nausea/Vomiting, 04/13/17) Dilaudid (Verified Allergy, Unknown, VOMITING, 04/13/17) Morphine (Verified Adverse Reaction, Intermediate, VOMITS, 04/13/17) Zofran (Verified Adverse Reaction, Intermediate, Headache, 04/13/17) "IT GIVES ME A TERRIBLE HEADACHE" STATED 11/13/15 Reported Meds & Prescriptions Reported Meds & Active Scripts Active Reported Flexeril (Cyclobenzaprine HCl) 10 Mg Tab 10 Mg PO TID Vitamin D3 (Cholecalciferol) 1,000 Unit Tab 1,000 Units PO DAILY Neurontin (Gabapentin) 300 Mg Cap 300 Mg PO TID Synthroid (Levothyroxine Sodium) 50 Mcg Tab 50 Mcg PO DAILY Aldactone (Spironolactone) 100 Mg Tab 100 Mg PO DAILY Methocarbamol 750 Mg Tab 750 Mg PO TID PRN Zyrtec Allergy (Cetirizine HCl) 10 Mg Tab 10 Mg PO DAILY Review of Systems General / Constitutional: No: Fever Eyes: No: Visual changes HENT: No: Headaches Cardiovascular: Positive: Chest Pain or Discomfort Respiratory: No: Shortness of Breath Gastrointestinal: No: Abdominal Pain Genitourinary: No: Dysuria Musculoskeletal: No: Pain Skin: No Rash Neurologic: No: Weakness Psychiatric: Positive: Anxiety, No: Depression Endocrine: No: Polydipsia Hematologic/Lymphatic: No: Easy Bruising Physical Exam Narrative GENERAL: Well-nourished, well-developed patient in no apparent distress. SKIN: Focused skin assessment reveals no rash and nodules. Skin is Warm and dry. HEAD: Atraumatic. Normocephalic. EYES: Pupils equal and round. No scleral icterus. No injection or drainage. ENT: No nasal bleeding or discharge. Mucous membranes pink and moist. NECK: Trachea midline. No JVD. CARDIOVASCULAR: Regular rate and rhythm. No murmur appreciated. RESPIRATORY: No accessory muscle use. Clear to auscultation. Breath sounds equal bilaterally. GASTROINTESTINAL: Abdomen soft, non-tender, nondistended. Hepatic and splenic margins not palpable. MUSCULOSKELETAL: No obvious deformities. No clubbing. No cyanosis. No edema. Some marked chest wall tenderness NEUROLOGICAL: Awake and alert. No obvious cranial nerve deficits. Motor grossly within normal limits. Normal speech. PSYCHIATRIC: Anxious mood and affect; insight and judgment normal. Data Data Last Documented VS Vital Signs Date Time Temp Pulse Resp B/P Pulse Ox O2 Delivery O2 Flow Rate FiO2 04/13/17 12:29 16 98 Room Air 04/13/17 12:18 94 168/88 04/13/17 12:01 97.6 Orders Electrocardiogram (04/13/17 12:19) Basic Metabolic Panel (Bmp) (04/13/17 12:19) Ckmb (Isoenzyme) Profile (04/13/17 12:19) Complete Blood Count With Diff (04/13/17 12:19) Prothrombin Time / Inr (Pt) (04/13/17 12:19) Act Partial Throm Time (Ptt) (04/13/17 12:19) Troponin I (04/13/17 12:19) Chest, Single Ap (04/13/17 12:19) Ecg Monitoring (04/13/17 12:19) Iv Access Insert/Monitor (04/13/17 12:19) Oximetry (04/13/17 12:19) Aspirin (Aspirin) (04/13/17 12:30) Sodium Chloride 0.9% Flush (Ns Flush) (04/13/17 12:30) Diet Heart Healthy (04/13/17 Lunch) Vital Signs (Adult) [id number].[id number] (04/13/17 13:18) Admit Order (Ed Use Only) (04/13/17 13:22) Labs Laboratory Tests Test 04/13/17 12:25 White Blood Count 8.4 TH/MM3 Red Blood Count 4.50 MIL/MM3 Hemoglobin 13.8 GM/DL Hematocrit 41.0 % Mean Corpuscular Volume 91.1 FL Mean Corpuscular Hemoglobin 30.5 PG Mean Corpuscular Hemoglobin 33.5 % Concent Red Cell Distribution Width 12.3 % Platelet Count 398 TH/MM3 Mean Platelet Volume 6.8 FL Neutrophils (%) (Auto) 63.4 % Lymphocytes (%) (Auto) 26.9 % Monocytes (%) (Auto) 5.8 % Eosinophils (%) (Auto) 3.2 % Basophils (%) (Auto) 0.7 % Neutrophils # (Auto) 5.2 TH/MM3 Lymphocytes # (Auto) 2.3 TH/MM3 Monocytes # (Auto) 0.5 TH/MM3 Eosinophils # (Auto) 0.3 TH/MM3 Basophils # (Auto) 0.1 TH/MM3 CBC Comment DIFF FINAL Differential Comment Prothrombin Time 10.1 SEC Prothromb Time International 0.9 RATIO Ratio Activated Partial 30.3 SEC Thromboplast Time Sodium Level 140 MEQ/L Potassium Level 3.8 MEQ/L Chloride Level 107 MEQ/L Carbon Dioxide Level 24.5 MEQ/L Anion Gap 9 MEQ/L Blood Urea Nitrogen 10 MG/DL Creatinine 0.70 MG/DL Estimat Glomerular Filtration 93 ML/MIN Rate Random Glucose 91 MG/DL Calcium Level 9.3 MG/DL Total Creatine Kinase 68 U/L Troponin I LESS THAN 0.02 NG/ML [facility] Medical Decision Making Medical Screen Exam Complete: Yes Emergency Medical Condition: Yes Medical Record Reviewed: Yes Differential Diagnosis Differential diagnosis includes CT, angina, pericarditis, pleurisy, GERD, anxiety. Narrative Course I have reviewed the patient's electronic medical record. IV placed I reviewed the EKG shows sinus rhythm with no ST elevation I reviewed the chest x-ray which is normal Extended cardiac monitoring shows sinus rhythm without ectopy CBC is normal Metabolic profile is normal CK is normal Troponin is normal Coagulation studies are normal I gave her an aspirin. Workup here is normal but she has strong family history of cardiac disease and elevated blood pressure. She will be a 23 are observation on telemetry in the chest pain center in order to rule out cardiac cause of her symptoms. I reviewed with the hospitalist Diagnosis Primary Impression: Chest pain in adult Admitting Information Admitting Physician Requests: Observation Curtis Weinstein MD Apr 13, 2017 12:21
[2017-04-13] MEDS ORDERED: ASPIRIN 325 MG TAB PO ONE (12:30)
[2017-04-13] MEDS ORDERED: SODIUM CHLORIDE 0.9% FLUSH 10 ML FLUSH IVF PRN (12:30)
[2017-04-13 12:37] LABS: AUTOMATED NEUTROPHIL # 5.2 TH/MM3 (1.8-7.7); BASOPHIL # 0.1 TH/MM3 (0-0.2); BASOPHIL % 0.7 % (0.0-2.0); EOSINOPHIL # 0.3 TH/MM3 (0-0.4); EOSINOPHIL % 3.2 % (0.0-4.0); HEMO FLAGS DIFF FINAL; LYMPH % 26.9 % (9.0-44.0); LYMPHOCYTE # 2.3 TH/MM3 (1.0-4.8); MEAN CELL VOLUME 91.1 FL (80.0-100.0); MEAN CORPUSCULAR HEMOGLOBIN 30.5 PG (27.0-34.0); MEAN CORPUSCULAR HGB CONC 33.5 % (32.0-36.0); MONO % 5.8 % (0.0-8.0); NEUT % 63.4 % (16.0-70.0); PLATELET COUNT 398 TH/MM3 (150-450); RED CELL DISTRIBUTION WIDTH 12.3 % (11.6-17.2); WHITE BLOOD COUNT 8.4 TH/MM3 (4.0-11.0)
[2017-04-13 12:41] LABS: CHLORIDE 107 MEQ/L (98-107); POTASSIUM 3.8 MEQ/L (3.5-5.1); SODIUM (NA) 140 MEQ/L (136-145)
[2017-04-13 12:44] LABS: ANION GAP 9 MEQ/L (5-15); BICARBONATE 24.5 MEQ/L (21.0-32.0); BLOOD UREA NITROGEN 10 MG/DL (7-18)
[2017-04-13 12:45] LABS: APTT (PATIENT) 30.3 SEC (24.3-30.1); INTERNATIONAL NORMALIZED RATIO 0.9 RATIO; PROTHROMBIN TIME - PATIENT 10.1 SEC (9.8-11.6)
[2017-04-13 12:47] LABS: GLOMERULAR FILTRATION RATE 93 ML/MIN (>89)
[2017-04-13 12:53] LABS: CREATINE KINASE 68 U/L (26-192)
--- NOTE | 2017-04-13 12:56 | RADRPT ---
EXAM DATE/TIME: 04/13/2017 12:33 [facility] COMPARISON: CHEST SINGLE AP, February 23, 2016, 0:34. INDICATIONS : Chest pressure MEDICAL HISTORY : Sleep apnea SURGICAL HISTORY : Left breast biopsy ENCOUNTER: Initial ACUITY: 1 day PAIN SCORE: 4/10 LOCATION: Bilateral chest FINDINGS: A single view of the chest demonstrates the lungs to be symmetrically aerated without evidence of mas s, infiltrate or effusion. The cardiomediastinal contours are unremarkable. Osseous structures are intact. CONCLUSION: No acute disease. Rashi Perez MD FACR on April 13, 2017 at 12:54 Board Certified Radiologist. This report was verified electronically.
[2017-04-13] MEDS ORDERED: ENALAPRILAT 1.25 MG/ML VIAL IV PUSH PRN (13:45)
--- NOTE | 2017-04-13 14:13 | HHI.HP ---
HPI Service [facility] Primary Care Physician Ravi Sanchez DO Admission Diagnosis chest pain Diagnoses: (1) Chest pain in adult Diagnosis: Principal Chief Complaint: Chest pain Travel History International Travel<30 Days: No Contact w/Intl Traveler <30 Da: No Traveled to Known Affected Are: No History of Present Illness Written by Curtis Bliss, acting as scribe for Dr. Huddleston on 04/13/17 at 14 :00. 41-year-old female with known history of hypertension, polycystic ovary disease, posttraumatic stress disorder, chronic back pain, hypothyroidism who presented to hospital because acute onset of chest discomfort. Patient states that she is normal state of health until today when she was working on the computer she started developing a pain in her left shoulder then developed a heaviness in her chest where she felt like somebody was standing on her chest. The pain radiated up into the left side of her neck with associated nausea but no vomiting. Patient had shortness of breath, dizziness, denies any vomiting, diaphoresis. The pain lasted for a couple minutes and resolved on its own. The patient states that the pain was intermittent throughout the day and because of those reasons she came to the hospital for evaluation. Patient states that she has never had a financial secretary or underwent any cardiac stress testing. Patient does have significant early-onset family history of heart disease. Patient states that she has been under a lot of stress lately due to divorce. The pain is reproducible on palpation, and at the present time she is still experiencing the pain without any resolution. Patient recommended observation chest pain center for further evaluation and management. Review of Systems Respiratory: COMPLAINS OF: Shortness of breath Cardiovascular: COMPLAINS OF: Chest pain Gastrointestinal: COMPLAINS OF: Nausea Except as stated in HPI: all other systems reviewed are Neg Past Family Social History Past Medical History History of hypertension Hypothyroidism Chronic back pain Polycystic ovary syndrome Posttraumatic stress disorder History tobacco use Past Surgical History Sinus surgery, recent with Dr. Cardona Hysterectomy Tubal ligation Left palmar mass excision Cholecystectomy Left breast biopsy Reported Medications Reported Meds & Active Scripts Active Reported Flexeril (Cyclobenzaprine HCl) 10 Mg Tab 10 Mg PO TID Vitamin D3 (Cholecalciferol) 1,000 Unit Tab 1,000 Units PO DAILY Neurontin (Gabapentin) 300 Mg Cap 300 Mg PO TID Synthroid (Levothyroxine Sodium) 50 Mcg Tab 50 Mcg PO DAILY Aldactone (Spironolactone) 100 Mg Tab 100 Mg PO DAILY Methocarbamol 750 Mg Tab 750 Mg PO TID PRN Zyrtec Allergy (Cetirizine HCl) 10 Mg Tab 10 Mg PO DAILY Allergies: Coded Allergies: Amoxicillin (Verified Allergy, Severe, ANGIOEDEMA, 04/13/17) Lisinopril (Verified Allergy, Severe, FACIAL/TONGUE SWELLING, 04/13/17) Metformin (Verified Allergy, Severe, FACE SWELLING, 04/13/17) Sulfa (Verified Allergy, Severe, Rash, 04/13/17) Cipro (Verified Allergy, Intermediate, Nausea/Vomiting, 04/13/17) Dilaudid (Verified Allergy, Unknown, VOMITING, 04/13/17) Morphine (Verified Adverse Reaction, Intermediate, VOMITS, 04/13/17) Zofran (Verified Adverse Reaction, Intermediate, Headache, 04/13/17) "IT GIVES ME A TERRIBLE HEADACHE" STATED 11/13/15 Family History Reviewed is significant for mother having heart attack at age 40 or 41, grandmother with heart disease as well. Social History Patient with smoking in 2003, prior to that she smoked one half pack a cigarettes a day since she was 22. Denies any alcohol or illicit drugs Physical Exam Vital Signs Vital Signs Date Time Temp Pulse Resp B/P Pulse Ox O2 Delivery O2 Flow Rate FiO2 04/13/17 13:31 83 16 160/96 97 Room Air 04/13/17 12:29 16 98 Room Air 04/13/17 12:18 94 16 168/88 98 Room Air 04/13/17 12:01 97.6 86 18 181/95 97 Physical Exam GENERAL: Well-developed, well-nourished, in no acute distress. alert and orientated HEENT: Head is normocephalic without any lesions or masses noted. Facial features are symmetric. Eyes: Pupils equal round reactive to light. Extraocular muscles are intact. Conjunctivae were clear. Oropharyngeal: Pharynx without any erythema edema. Tongue is midline without deviation. Buccal mucosa is moist without any masses or lesions NECK: Supple without any masses. Trachea midline no deviation. No JVD, no bruits are appreciated CARDIAC: Regular rhythm, regular rate. S1/S2 are heard. No murmurs gallops or rubs. Reproducible palpable tenderness noted of the left anterior chest as well as over the acromioclavicular joint LUNGS: Clear to auscultation bilaterally. No wheeze, rhonchi or rales. No use of accessory muscles on inspiration or expiration. ABDOMEN: Soft, nontender. Nondistended. Bowel sounds heard in all 4 quadrants. No organomegaly or masses. Negative rebound, negative guarding EXTREMITIES: No edema, pulses are equal bilaterally. No cyanosis or clubbing NEUROLOGY: Mood and affect appear appropriate. Cranial nerves II through XII grossly intact. Muscle strength 5/5 in upper and lower extremities bilaterally. Deep tendon reflexes are 2+ in upper and lower extremities bilaterally. Laboratory Laboratory Tests Test 04/13/17 12:25 White Blood Count 8.4 Red Blood Count 4.50 Hemoglobin 13.8 Hematocrit 41.0 Mean Corpuscular Volume 91.1 Mean Corpuscular Hemoglobin 30.5 Mean Corpuscular Hemoglobin 33.5 Concent Red Cell Distribution Width 12.3 Platelet Count 398 Mean Platelet Volume 6.8 Neutrophils (%) (Auto) 63.4 Lymphocytes (%) (Auto) 26.9 Monocytes (%) (Auto) 5.8 Eosinophils (%) (Auto) 3.2 Basophils (%) (Auto) 0.7 Neutrophils # (Auto) 5.2 Lymphocytes # (Auto) 2.3 Monocytes # (Auto) 0.5 Eosinophils # (Auto) 0.3 Basophils # (Auto) 0.1 CBC Comment DIFF FINAL Differential Comment Prothrombin Time 10.1 Prothromb Time International 0.9 Ratio Activated Partial 30.3 Thromboplast Time Sodium Level 140 Potassium Level 3.8 Chloride Level 107 Carbon Dioxide Level 24.5 Anion Gap 9 Blood Urea Nitrogen 10 Creatinine 0.70 Estimat Glomerular Filtration 93 Rate Random Glucose 91 Calcium Level 9.3 Total Creatine Kinase 68 Troponin I LESS THAN 0.02 Result Diagram: 04/13/17 1225 04/13/17 1225 Imaging Last Impressions Chest X-Ray 04/13/17 1219 Signed Impressions: Service Date/Time: Thursday, April 13, 2017 12:33 - CONCLUSION: No acute disease. Rashi Perez MD FACR Assessment and Plan Assessment and Plan Chest pain Patient with risk factor to include history of elevated blood pressure, history of tobacco use and family history of heart disease Patient be ruled out for any acute coronary event with serial cardiac enzymes which are negative thus far and serial EKGs which show sinus rhythm, there is inverted T-wave in lead II, otherwise unremarkable If patient ruled out for acute coronary event will plan exercise stress test to rule out any underlying ischemia Continue aspirin, nitroglycerin as needed, oxygen, Demerol as needed for pain Obtain lipid panel Elevated blood pressure in a patient with history of hypertension Start Norvasc 5 mg daily Clonidine, Apresoline as needed Hypothyroidism Continue replacement therapy Chronic back pain Continue home medications DVT prevention Sequential compression devices This note was transcribed by scribe [Curtis Bliss]. I, Dr. Shraddha Huddleston, personally performed the history, physical exam, and medical decision making; and confirmed the accuracy of the information in the transcribed note. Curtis Bliss Apr 13, 2017 14:13 Shraddha Huddleston MD Apr 13, 2017 14:36
[2017-04-13] MEDS ORDERED: hydrALAZINE HCL 20 MG/ML VIAL IV PUSH PRN (14:15)
[2017-04-13] MEDS ORDERED: ACETAMINOPHEN 500 MG CPLT PO PRN (14:15)
[2017-04-13] MEDS ORDERED: NITROGLYCERIN 0.4 MG SL 25 TABS/BTL SL PRN (14:15)
[2017-04-13] MEDS ORDERED: cloNIDine HCL 0.1 MG TAB PO PRN (14:15)
[2017-04-13] MEDS: amLODIPine BESYLATE 5 MG TAB PO SCH (15:08)
[2017-04-13] MEDS: IBUPROFEN 400 MG TAB PO PRN (15:36)
[2017-04-13] MEDS: GABAPENTIN 300 MG CAP PO SCH (17:56)
[2017-04-13] MEDS ORDERED: CYCLOBENZAPRINE HCL 10 MG TAB PO SCH (18:00)
[2017-04-13] MEDS ORDERED: CYCLOBENZAPRINE HCL 10 MG TAB PO PRN (18:00)
[2017-04-14] VITALS: BP 146/82; PULSE 88; RESP 18; TEMP 97.8; O2SAT 98
[2017-04-14 04:00] VITALS: BP 112/70; PULSE 83; RESP 18; TEMP 96.6; O2SAT 96
[2017-04-14] MEDS ORDERED: LEVOTHYROXINE SODIUM 50 MCG TAB PO SCH (06:00)
--- NOTE | 2017-04-14 07:37 | HHI.PR ---
Subjective Remarks resting comfortably with no distress. no chest pain or sob over night. no other complaints. Objective Vitals Vital Signs Date Time Temp Pulse Resp B/P Pulse Ox O2 Delivery O2 Flow Rate FiO2 04/14/17 04:00 96.6 83 18 112/70 96 04/14/17 00:00 97.8 88 18 146/82 98 04/13/17 23:00 96 04/13/17 21:40 96 21 04/13/17 20:00 97.1 85 18 142/83 97 04/13/17 17:00 95 21 04/13/17 16:00 98.2 85 18 142/91 95 04/13/17 15:28 89 04/13/17 14:33 86 16 151/92 98 Room Air 04/13/17 14:19 88 16 152/100 97 Room Air 04/13/17 13:31 83 16 160/96 97 Room Air 04/13/17 12:29 16 98 Room Air 04/13/17 12:18 94 16 168/88 98 Room Air 04/13/17 12:01 97.6 86 18 181/95 97 I/O 04/13/17 04/13/17 04/13/17 04/14/17 04/14/17 04/14/17 06:59 14:59 22:59 06:59 14:59 22:59 Intake Total 0 ml 240 ml Balance 0 ml 240 ml Intake Oral 240 ml IV Total 0 ml # Voids 3 # Bowel Movements 0 Result Diagram: 04/13/17 1225 04/13/17 1225 Imaging Last Impressions Chest X-Ray 04/13/17 1219 Signed Impressions: Service Date/Time: Thursday, April 13, 2017 12:33 - CONCLUSION: No acute disease. Rashi Perez MD FACR Objective Remarks GENERAL: This is a well-nourished, well-developed patient, in no apparent distress. CARDIOVASCULAR: Regular rate and regular rhythm without murmurs, gallops, or rubs. RESPIRATORY: Clear to auscultation. Breath sounds equal bilaterally. No wheezes , rales, or rhonchi. GASTROINTESTINAL: Abdomen soft, non-tender, nondistended. Normal, active bowel sounds MUSCULOSKELETAL: Extremities without clubbing, cyanosis, or edema. NEURO: Alert & Oriented x4 to person, place, time, situation. Moves all ext x4 Procedures none Medications and IVs Current Medications Aspirin (Aspirin) 325 mg ONCE ONCE PO Last administered on 04/13/17 12:33; Start 04/13/17 at 12:30; Stop 04/13/17 at 12:31; Status DC Sodium Chloride (NS Flush) 2 ml UNSCH PRN IVF FLUSH AFTER USING IV ACCESS; Start 04/13/17 at 12:30 Cyclobenzaprine HCl (Flexeril) 10 mg TID PO ; Start 04/13/17 at 18:00; Stop at 18:00; Status DC Gabapentin (Neurontin) 300 mg TID PO Last administered on 04/13/17 17:56; Start 04/13/17 at 18:00 Levothyroxine Sodium (Synthroid) 50 mcg DAILY@06 PO Last administered on 06:07; Start 04/14/17 at 06:00 Spironolactone (Aldactone) 100 mg DAILY PO ; Start 04/14/17 at 09:00 Ibuprofen (Motrin) 400 mg Q8HR PRN PO PAIN Last administered on 04/13/17 15:36 ; Start 04/13/17 at 13:45 Enalaprilat (Vasotec Inj) 1.25 mg Q8H PRN IV PUSH SBP> OR = 180, DBP> OR = 100 ; Start 04/13/17 at 13:45; Stop 04/13/17 at 14:21; Status DC Cyclobenzaprine HCl (Flexeril) 10 mg TID PRN PO MUSCLE SPASM Last administered on 04/13/17 21:43; Start 04/13/17 at 18:00 Acetaminophen (Tylenol) 500 mg Q4H PRN PO HEADACHE Last administered on 21:20; Start 04/13/17 at 14:15 Nitroglycerin (Nitrostat Sl) 0.4 mg Q5M PRN SL CHEST PAIN; Start 04/13/17 at 14 :15 Aspirin (Aspirin) 325 mg DAILY PO ; Start 04/14/17 at 09:00 Amlodipine Besylate (Norvasc) 5 mg DAILY PO Last administered on 04/13/17 15: 08; Start 04/13/17 at 14:15 Clonidine (Catapres) 0.1 mg Q6H PRN PO SBP>160, DBP>90; Start 04/13/17 at 14:15 Hydralazine HCl (Apresoline Inj) 20 mg Q4H PRN IV PUSH SBP> OR = 180, DBP> OR = 100; Start 04/13/17 at 14:15 A/P Assessment and Plan Chest pain Patient with risk factor to include history of elevated blood pressure, history of tobacco use and family history of heart disease Patient ruled out for any acute coronary event with serial cardiac enzymes which are negative along with serial EKGs which show sinus rhythm -proceed with stress test today Obtain lipid panel Elevated blood pressure in a patient with history of hypertension Started Norvasc 5 mg daily Clonidine, Apresoline as needed Hypothyroidism Continue replacement therapy Chronic back pain Continue home medications DVT prevention Sequential compression devices Discharge Planning possible dc home later today if the stress test is negative. Shraddha Huddleston MD Apr 14, 2017 07:37
[2017-04-14] MEDS ORDERED: AMLO5 PO (07:38)
[2017-04-14 08:00] VITALS: BP 141/95; PULSE 86; RESP 24; TEMP 97.3; O2SAT 97
[2017-04-14 09:00] VITALS: O2SAT 97
[2017-04-14] MEDS ORDERED: SPIRONOLACTONE 100 MG TAB PO SCH (09:00)
[2017-04-14] MEDS ORDERED: ASPIRIN 325 MG TAB PO SCH (09:00)
[2017-04-14] MEDS: GABAPENTIN 300 MG CAP PO SCH ×2 (09:02→12:13)
[2017-04-14] MEDS: amLODIPine BESYLATE 5 MG TAB PO SCH (09:03)
[2017-04-14] MEDS: IBUPROFEN 400 MG TAB PO PRN (09:04)
[2017-04-14] MEDS ORDERED: REGADENOSON INJ 0.4 MG/5 ML SYR IV ONE (10:01)
[2017-04-14 10:55] LABS: HDL CHOLESTEROL 48.7 MG/DL (40.0-60.0)
[2017-04-14] MEDS ORDERED: AMINOPHYLLINE INJ 250 MG/10 ML VIAL IV ONE (10:56)
--- NOTE | 2017-04-14 11:56 | EKG ---
Date Performed: 04/13/2017 Time Performed: 11:56:59 PTAGE: 41 years EKG: Sinus rhythm MODERATE VOLTAGE CRITERIA FOR LVH, CONSIDER NORMAL VARIANT BORDERLINE ECG INTERPRETATION BASED ON A DEFAULT AGE OF 41 YEARS PREVIOUS TRACING : 02/23/2016 00.19 Compared to prior tracing no significant change DOCTOR: Yosef Newell Interpretating Date/Time 04/14/2017 11:54:43
--- NOTE | 2017-04-14 11:57 | EKG ---
Date Performed: 04/13/2017 Time Performed: 15:55:33 PTAGE: 41 years EKG: Sinus rhythm MODERATE VOLTAGE CRITERIA FOR LVH, CONSIDER NORMAL VARIANT BORDERLINE ECG PREVIOUS TRACING : 04/13/2017 11.56 Compared to prior tracing no significant change DOCTOR: Yosef Newell Interpretating Date/Time 04/14/2017 11:54:52
[2017-04-14 12:00] VITALS: BP 144/83; PULSE 77; RESP 20; TEMP 96.6; O2SAT 99
--- NOTE | 2017-04-14 12:19 | TR ---
Date Performed: 04/14/2017 Time Performed: 10:35:56 DOCTOR: Tri Valdovinos DRUG LIST: CLINICAL HISTORY: REASON FOR TEST: Chest pain REASON FOR ENDING: OBSERVATION: CONCLUSION: Lexiscan stress test was performed under standard four minute protocol. Radionuclid e was injected one minute prior to ending the test. No electrocardiographic abormalities were present to suggest ischemia. Nuclear imaging and interpretation are pending. COMMENTS:
--- NOTE | 2017-04-14 13:07 | RADRPT ---
EXAM DATE/TIME: 04/14/2017 10:04 [facility] COMPARISON: No previous studies available for comparison. INDICATIONS : Substernal chest pain radiating to left arm and neck with dyspnea, diaphoresis, dizziness and nausea. Angina. DOSE: 34.9 mCi Tc99m Myoview at stress. 11 mCi Tc99m Myoview at rest. 0.4 mg Lexiscan STRESS SYMPTOMS: Dyspnea, lightheadedness, facial flush, nausea, tingling, chest pressure and headache. MEDICATIONS: 1.) 100 mg Aminophylline IV EJECTION FRACTION: 68% MEDICAL HISTORY : Hypertension. Hypothyroidism. SURGICAL HISTORY : Hysterectomy. Tubal ligation. Cholecystectomy. Sinus surgery. ENCOUNTER: Initial ACUITY: 1 day PAIN SCALE: 5/10 LOCATION: Substernal chest TECHNIQUE: The patient underwent pharmacologic stress with infusion of prescribed dose. Continuous ECG tracing was monitored during stress. Gated SPECT imaging was performed after stress and conventional SPECT i maging was performed at rest. The examination was performed on a SPECT/CT scanner, both attenuation and non-corrected datasets were reviewed. FINDINGS: DISTRIBUTION: The maximum perfused segment at stress is in the septal wall. PERFUSION STUDY: The pattern of perfusion at stress is within normal limits. GATED STUDY: There is intact wall motion and thickening without hypokinetic or dyskinetic segments. CONCLUSION: Normal examination. RISK CATEGORY: Low (<1% Annual Mortality Rate) Ravi Castro MD on April 14, 2017 at 13:04 Board Certified Radiologist. This report was verified electronically.
--- NOTE | 2017-04-14 14:21 | EKG ---
Date Performed: 04/13/2017 Time Performed: 18:55:45 PTAGE: 41 years EKG: Sinus rhythm LVH BY VOLTAGE IS NOT APPARENT COMPARED TO THE PRIOR TRACING NORMAL ECG PREVIOUS TRACING : 04/13/2017 15.55 DOCTOR: Yosef Newell Interpretating Date/Time 04/14/2017 14:20:04
--- NOTE | 2017-04-14 15:40 | HHI.DCPOC ---
Discharge Care Plan Your Health Problems Are: Chest Pain Goals to Promote Your Health * To prevent worsening of your condition and complications * To maintain your health at the optimal level Directions to Meet Your Goals Take your medications as prescribed Follow your dietary instruction Follow activity as directed Keep your appointments as scheduled Take your immunizations and boosters as scheduled If your symptoms worsen call your PCP, if no PCP go to Urgent Care Center or Emergency Room Smoking is Dangerous to Your Health. Avoid second hand smoke Call the 24-hour hour crisis hotline for domestic abuse at Gita Chan Apr 14, 2017 15:40
[2017-04-14 16:00] VITALS: BP 136/80; PULSE 80; RESP 20; TEMP 97.2; O2SAT 99
== END 2017-04-14 17:56 | disposition home or self-care (01) ==
LOC: PHED 11:52 → PHEDA 13:24 → PH3B 14:40
PROVIDERS: ADMIT Hospitalist; ATTEND Hospitalist
DX: R07.89 Other chest pain (principal); I10 Essential (primary) hypertension; E03.9 Hypothyroidism, unspecified; F43.10 Post-traumatic stress disorder, unspecified; G89.29 Other chronic pain; M54.9 Dorsalgia, unspecified; E28.2 Polycystic ovarian syndrome; Z79.899 Other long term (current) drug therapy; F41.9 Anxiety disorder, unspecified; F32.9 Major depressive disorder, single episode, unspecified; K21.9 Gastro-esophageal reflux disease without esophagitis; G47.30 Sleep apnea, unspecified; Z87.891 Personal history of nicotine dependence; Z79.82 Long term (current) use of aspirin; Z82.49 Family history of ischemic heart disease and other diseases of the circulatory system
CPT/HCPCS: 71010; 78452; 80048; 80061; 82550; 84484; 85025; 85610; 85730; 93005; 93017; 99285; A9502; G0378; J0280; J2785

== ENCOUNTER 2017-05-19 13:26 | Emergency (ER) | payer OTHER ==
[~2017-05-19] VITALS: Ht 167.6 cm; Wt 104.6 kg
[~2017-05-19 13:26] MED LIST changes: -CLIN1CAP5 PO; +CYCL1TAB29 PO; -ZITH500T PO
[2017-05-19 13:32] VITALS: BP 133/93; PULSE 109; RESP 14; TEMP 98.8; O2SAT 97
[2017-05-19 14:00] VITALS: O2SAT 98
[2017-05-19] MEDS ORDERED: SODIUM CHLOR 0.9% 1000 ML INJ 1,000 ML IV ONE (14:00)
[2017-05-19] MEDS ORDERED: METOCLOPRAMIDE HCL 10 MG/2 ML VIAL IV PUSH ONE (14:00)
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
[2017-05-19 14:37] LABS: AUTOMATED NEUTROPHIL # 13.8 TH/MM3 (1.8-7.7); BASOPHIL # 0.2 TH/MM3 (0-0.2); BASOPHIL % 1.5 % (0.0-2.0); EOSINOPHIL # 0.1 TH/MM3 (0-0.4); EOSINOPHIL % 0.4 % (0.0-4.0); HEMATOCRIT 44.5 % (35.0-46.0); LYMPH % 2.9 % (9.0-44.0); LYMPHOCYTE # 0.4 TH/MM3 (1.0-4.8); MEAN CELL VOLUME 91.3 FL (80.0-100.0); MEAN CORPUSCULAR HEMOGLOBIN 29.5 PG (27.0-34.0); MEAN CORPUSCULAR HGB CONC 32.3 % (32.0-36.0); MONO % 2.9 % (0.0-8.0); NEUT % 92.3 % (16.0-70.0); PLATELET COUNT 426 TH/MM3 (150-450); RED BLOOD COUNT 4.87 MIL/MM3 (4.00-5.30); RED CELL DISTRIBUTION WIDTH 12.9 % (11.6-17.2); WHITE BLOOD COUNT 14.9 TH/MM3 (4.0-11.0)
[2017-05-19 14:41] LABS: POTASSIUM 4.1 MEQ/L (3.5-5.1)
[2017-05-19 14:42] LABS: HEMO FLAGS DIFF FINAL
[2017-05-19 14:44] LABS: BICARBONATE 24.1 MEQ/L (21.0-32.0)
[2017-05-19] MEDS ORDERED: REGL10TA5 PO (15:24)
== END 2017-05-19 15:37 | disposition home or self-care (01) ==
LOC: PHED 13:26
DX: R11.10 Vomiting, unspecified (principal); R19.7 Diarrhea, unspecified; E03.9 Hypothyroidism, unspecified
CPT/HCPCS: 80048; 85025; 96360; 99284; J2765; J7030

== ENCOUNTER 2017-06-03 21:41 | Emergency (ER) | payer OTHER ==
[~2017-06-03] VITALS: Ht 167.6 cm; Wt 106.0 kg
[~2017-06-03 21:41] MED LIST changes: -CYCL1TAB29 PO; -NEUR300C PO; +REGL10TA5 PO; -VITA100064 PO; -ZYRT10TA PO
[2017-06-03 23:16] VITALS: BP 144/91; PULSE 100; RESP 18; TEMP 98.4; O2SAT 97
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
[2017-06-03 23:59] VITALS: BP 144/91; PULSE 100; RESP 18; TEMP 98.4; O2SAT 97
[2017-06-04] MEDS ORDERED: GABA300C5 PO (00:11)
[2017-06-04] MEDS ORDERED: AMLO10 PO (00:11)
[2017-06-04 00:30] VITALS: BP 140/76; PULSE 84; RESP 18; O2SAT 97
--- NOTE | 2017-06-04 00:32 | RADRPT ---
EXAM DATE/TIME: 06/03/2017 23:55 [facility] COMPARISON: No previous studies available for comparison. INDICATIONS : Right foot pain. No known trauma. MEDICAL HISTORY : None. SURGICAL HISTORY : None. ENCOUNTER: Initial ACUITY: 3 days PAIN SCORE: 5/10 LOCATION: Right foot. FINDINGS: Three view examination of the right foot demonstrates questionable lucency through the medial aspect of the first cuneiform. While this may be artifactual due to overlapping osseous structures, lucency is present on 2 of the 3 projections. Osseous structures are otherwise intact. No regional soft tissu e swelling. CONCLUSION: 1. Questionable lucency through the medial aspect of the first cuneiform could represent a nondisplac ed fracture. If the patient has point tenderness at the base of the great toe, CT could be performed for further characterization. If there is no point tenderness in this location, no further imaging is warranted 2. Otherwise negative. Sher Colvin MD on June 04, 2017 at 0:25 Board Certified Radiologist. This report was verified electronically.
--- NOTE | 2017-06-04 00:33 | RADRPT ---
EXAM DATE/TIME: 06/03/2017 23:55 [facility] COMPARISON: ANKLE RIGHT COMPLETE ([id number]), March 28, 2016, 16:25. INDICATIONS : Right ankle pain. No known trauma. MEDICAL HISTORY : None. SURGICAL HISTORY : None. ENCOUNTER: Initial ACUITY: 3 days PAIN SCORE: 5/10 LOCATION: Right ankle. FINDINGS: Three view exam was performed of the right ankle. The bony structures are in normal alignment. No e vidence of fracture, or dislocation. Soft tissue swelling about the lateral malleolus. The ankle mor tise is intact. No radiopaque foreign bodies are seen. Bony mineralization is normal. CONCLUSION: 1. Soft tissue swelling about the lateral malleolus. 2. No acute fracture. Sher Colvin MD on June 04, 2017 at 0:30 Board Certified Radiologist. This report was verified electronically.
[2017-06-04] MEDS ORDERED: KETOROLAC TROMETHAMINE 60 MG/2 ML (IM) VIAL IM ONE (00:45)
[2017-06-04] MEDS ORDERED: IBUP-232 PO (00:45)
[2017-06-04 01:11] VITALS: BP 140/85
== END 2017-06-04 01:20 | disposition home or self-care (01) ==
LOC: PHED 21:41
DX: S93.401A Sprain of unspecified ligament of right ankle, initial encounter (principal); I10 Essential (primary) hypertension; E07.9 Disorder of thyroid, unspecified; X58.XXXA Exposure to other specified factors, initial encounter; Z86.59 Personal history of other mental and behavioral disorders; Z86.79 Personal history of other diseases of the circulatory system; Z87.19 Personal history of other diseases of the digestive system; Z87.39 Personal history of other diseases of the musculoskeletal system and connective tissue; Z87.448 Personal history of other diseases of urinary system; Z87.42 Personal history of other diseases of the female genital tract; Z87.891 Personal history of nicotine dependence
CPT/HCPCS: 73610; 73630; 99283; L1906

== ENCOUNTER 2017-10-06 11:41 | Emergency (ER) | payer OTHER ==
[~2017-10-06] VITALS: Ht 167.6 cm; Wt 107.0 kg
[~2017-10-06 11:41] MED LIST changes: +AMLO10 PO; +GABA300C5 PO; +IBUP-232 PO
[2017-10-06 11:46] VITALS: BP 162/106; PULSE 86; RESP 18; TEMP 98.2; O2SAT 97
[2017-10-06] MEDS ORDERED: KETOROLAC TROMETHAMINE 30 MG/ML (IVP) VIAL IV PUSH ONE (12:15)
[2017-10-06] MEDS ORDERED: SODIUM CHLOR 0.9% 1000 ML INJ 1,000 ML IV ONE (12:15)
[2017-10-06] MEDS ORDERED: IBUP1TAB7 PO (12:17)
[2017-10-06] MEDS ORDERED: CHOL5000 PO (12:18)
[2017-10-06] MEDS ORDERED: VITATAB11 PO (12:18)
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
[2017-10-06] MEDS ORDERED: MULT-65 PO (12:21)
[2017-10-06 12:38] LABS: AUTOMATED NEUTROPHIL # 8.8 TH/MM3 (1.8-7.7); BASOPHIL # 0.1 TH/MM3 (0-0.2); BASOPHIL % 0.4 % (0.0-2.0); EOSINOPHIL # 0.7 TH/MM3 (0-0.4); EOSINOPHIL % 5.5 % (0.0-4.0); HEMATOCRIT 39.8 % (35.0-46.0); HEMOGLOBIN 13.4 GM/DL (11.6-15.3); LYMPH % 18.9 % (9.0-44.0); LYMPHOCYTE # 2.4 TH/MM3 (1.0-4.8); MEAN CELL VOLUME 91.9 FL (80.0-100.0); MEAN CORPUSCULAR HEMOGLOBIN 30.9 PG (27.0-34.0); MEAN CORPUSCULAR HGB CONC 33.6 % (32.0-36.0); MEAN PLATELET VOLUME 7.1 FL (7.0-11.0); MONO % 5.4 % (0.0-8.0); MONOCYTE # 0.7 TH/MM3 (0-0.9); NEUT % 69.8 % (16.0-70.0); PLATELET COUNT 386 TH/MM3 (150-450); RED BLOOD COUNT 4.33 MIL/MM3 (4.00-5.30); RED CELL DISTRIBUTION WIDTH 12.7 % (11.6-17.2); WHITE BLOOD COUNT 12.6 TH/MM3 (4.0-11.0)
[2017-10-06 12:39] LABS: BILIRUBIN, URINE NEG (NEG); BLOOD, URINE LARGE (NEG); GLUCOSE,URINE NEG (NEG); KETONE, URINE NEG (NEG); NITRITE,URINE NEG (NEG); URINE LEUKOCYTE ESTERASE NEG (NEG)
[2017-10-06 12:45] LABS: URINE COLOR YELLOW (YELLW/STRAW)
[2017-10-06 12:46] LABS: HYALINE CAST, URINE 0-2 /lpf (RARE)
[2017-10-06 12:48] LABS: CHLORIDE 106 MEQ/L (98-107); SODIUM (NA) 139 MEQ/L (136-145)
[2017-10-06 12:48] LABS: BACTERIA, URINE FEW /hpf
[2017-10-06 12:51] LABS: CALCIUM 9.2 MG/DL (8.5-10.1)
[2017-10-06 12:52] LABS: ALBUMIN 3.5 GM/DL (3.4-5.0); BICARBONATE 24.4 MEQ/L (21.0-32.0); BLOOD UREA NITROGEN 9 MG/DL (7-18); GLUCOSE,RANDOM 139 MG/DL (74-106)
[2017-10-06 12:55] LABS: ALT (GPT) 42 U/L (10-53); AST (GOT) 19 U/L (15-37); CREATININE 0.94 MG/DL (0.50-1.00); GLOMERULAR FILTRATION RATE 66 ML/MIN (>89)
[2017-10-06 12:56] LABS: TOTAL BILIRUBIN ADULT 0.3 MG/DL (0.2-1.0); TOTAL PROTEIN 7.4 GM/DL (6.4-8.2)
[2017-10-06 12:58] LABS: ALKALINE PHOSPHATASE 97 U/L (45-117)
[2017-10-06 13:35] VITALS: BP 154/90; PULSE 78; RESP 16; O2SAT 98
--- NOTE | 2017-10-06 13:36 | RADRPT ---
EXAM DATE/TIME: 10/06/2017 13:21 [facility] COMPARISON: No previous studies available for comparison. INDICATIONS : Right sided abdominal pain. Evaluate for renal stone or appendicitis. ORAL CONTRAST: No oral contrast ingested. RADIATION DOSE: 20.01 CTDIvol (mGy) MEDICAL HISTORY : Hypertension. SURGICAL HISTORY : Cholecystectomy. Tubal ligation.Hysterectomy. ENCOUNTER: Initial ACUITY: 2 days PAIN SCALE: 5/10 LOCATION: Right abdomen TECHNIQUE: Volumetric scanning of the abdomen and pelvis was performed. Using automated exposure control and ad justment of the mA and/or kV according to patient size, radiation dose was kept as low as reasonably achievable to obtain optimal diagnostic quality images. DICOM format image data is available electro nically for review and comparison. FINDINGS: LOWER LUNGS: The visualized lower lungs are clear. LIVER: Homogeneous density without lesion. There is no dilation of the biliary tree. The gallbladder is estela gically absent.. SPLEEN: Normal size without lesion. PANCREAS: Within normal limits. KIDNEYS: Small bilateral nonobstructing kidney stones. The largest of these is a 5 mm calcification in the upp er pole collecting system of the left kidney. There are is mild left hydronephrosis and hydroureter d own to the level of a miniscule one-2 mm stone at the left ureterovesical junction. There are no uret eral stones identified on the right. Right-sided collecting system is nondilated. ADRENAL GLANDS: Within normal limits. VASCULAR: There is no aortic aneurysm. BOWEL/MESENTERY: The stomach, small bowel, and colon demonstrate no acute abnormality. There is no free intraperitone al air or fluid. The appendix is seen and appears normal. ABDOMINAL WALL: Within normal limits. RETROPERITONEUM: There is no lymphadenopathy. BLADDER: No wall thickening or mass. REPRODUCTIVE: Within normal limits. INGUINAL: There is no lymphadenopathy or hernia. MUSCULOSKELETAL: Within normal limits for patient age. CONCLUSION: Tiny stone at the left ureterovesical junction with mild left hydronephrosis. Small nonobstructing ca lculi in the kidneys bilaterally. No other acute CT findings. Ravi Castro MD on October 06, 2017 at 13:29 Board Certified Radiologist. This report was verified electronically.
[2017-10-06] MEDS ORDERED: ACETAMINOPHEN/HYDROcodone 325 MG/5 MG TAB PO ONE (14:00)
[2017-10-06] MEDS ORDERED: HYDR-3580 PO (14:02)
[2017-10-06] MEDS ORDERED: PROM25TA10 PO (14:02)
[2017-10-06 14:43] VITALS: RESP 16
[2017-10-06 14:45] VITALS: BP 151/86
[2017-10-09] MEDS ORDERED: BENZ100 PO (13:47)
[2017-10-09] MEDS ORDERED: PRED20 PO (13:47)
[2017-10-09] MEDS ORDERED: OSEL75 PO (13:47)
[2017-10-09] MEDS ORDERED: AZIT250T3 PO (13:47)
[2017-10-10] MEDS ORDERED: OSEL75 PO (15:47)
== END 2017-10-06 14:47 | disposition home or self-care (01) ==
LOC: PHED 11:41
DX: N23 Unspecified renal colic (principal); N20.2 Calculus of kidney with calculus of ureter; I10 Essential (primary) hypertension; K21.9 Gastro-esophageal reflux disease without esophagitis; E28.2 Polycystic ovarian syndrome; F32.9 Major depressive disorder, single episode, unspecified; Z87.442 Personal history of urinary calculi; Z72.0 Tobacco use; Z90.49 Acquired absence of other specified parts of digestive tract
CPT/HCPCS: 74176; 80053; 81001; 85025; 96361; 96374; 99284; J1885; J7030

== ENCOUNTER 2017-10-09 11:53 | Emergency (ER) | payer OTHER | END 2017-10-09 14:06 | disposition home or self-care (01) | LOC: PHED 11:53 | DX: J06.9 Acute upper respiratory infection, unspecified (principal); I10 Essential (primary) hypertension | CPT/HCPCS: 99284 ==

== ENCOUNTER 2017-11-01 13:34 | Emergency (ER) | payer OTHER ==
[~2017-11-01] VITALS: Ht 167.6 cm; Wt 106.0 kg
[~2017-11-01 13:34] MED LIST changes: -AMLO10 PO; +AZIT250T3 PO; +BENZ100 PO; +CHOL5000 PO; -IBUP-232 PO; +IBUP1TAB7 PO; +MULT-65 PO; +OSEL75 PO; +PRED20 PO; -REGL10TA5 PO; +VITATAB11 PO
[2017-11-01 13:43] VITALS: BP 172/103; PULSE 102; RESP 18; TEMP 99; O2SAT 96
[2017-11-01] MEDS ORDERED: KETOROLAC TROMETHAMINE 60 MG/2 ML (IM) VIAL IM ONE (14:15)
[2017-11-01] MEDS ORDERED: ORPHENADRINE INJ 60 MG/2 ML AMP IM ONE (14:15)
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
[2017-11-01 14:52] VITALS: BP 143/93; PULSE 90; RESP 18; O2SAT 98
[2017-11-01 15:28] VITALS: RESP 18
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
[2017-11-01] MEDS ORDERED: DICL50TA PO (15:59)
== END 2017-11-01 16:05 | disposition home or self-care (01) ==
LOC: PHEFT 13:34
DX: S43.402A Unspecified sprain of left shoulder joint, initial encounter (principal); R07.81 Pleurodynia; M54.5 Low back pain; R00.0 Tachycardia, unspecified; I10 Essential (primary) hypertension; V49.49XA Driver injured in collision with other motor vehicles in traffic accident, initial encounter; Y92.410 Unspecified street and highway as the place of occurrence of the external cause; Z88.5 Allergy status to narcotic agent; Z88.2 Allergy status to sulfonamides; Z88.0 Allergy status to penicillin
CPT/HCPCS: 71045; 72100; 73030; 96372; 99284; J1885; J2360

== ENCOUNTER 2017-11-28 21:13 | Emergency (ER) | payer SELFPAY ==
[~2017-11-28] VITALS: Ht 167.6 cm; Wt 105.2 kg
[~2017-11-28 21:13] MED LIST changes: -AZIT250T3 PO; -BENZ100 PO; +DICL50TA PO; -METH750T PO; -OSEL75 PO; -PRED20 PO
[2017-11-28 21:16] VITALS: BP 174/88; PULSE 109; RESP 16; TEMP 98.4; O2SAT 96
[2017-11-28] MEDS ORDERED: methylPREDNISolone SOD SUCC 125 MG/2 ML VIAL IM ONE (21:30)
[2017-11-28] MEDS ORDERED: RESP: ALBUTEROL 2.5 MG/IPRATROPIUM 0.5 MG NEB (SCH) NEB ONE (21:30)
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
[2017-11-28 23:34] VITALS: BP 179/93; PULSE 98; RESP 18; TEMP 98.3; O2SAT 96
[2017-11-29] MEDS ORDERED: cloNIDine HCL 0.1 MG TAB PO ONE
[2017-11-29] MEDS ORDERED: VENTAER INH (00:01)
[2017-11-29] MEDS ORDERED: ZITHTAB PO (00:01)
[2017-11-29] MEDS ORDERED: MEDR4PAK PO (00:01)
[2017-11-29] MEDS ORDERED: CLON0.1T PO (00:01)
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
[2017-11-29 00:41] VITALS: BP 166/93
== END 2017-11-29 00:49 | disposition home or self-care (01) ==
LOC: PHEFT 21:13
DX: J40 Bronchitis, not specified as acute or chronic (principal); I10 Essential (primary) hypertension; E03.9 Hypothyroidism, unspecified; K21.9 Gastro-esophageal reflux disease without esophagitis; Z86.59 Personal history of other mental and behavioral disorders; Z87.42 Personal history of other diseases of the female genital tract; Z87.39 Personal history of other diseases of the musculoskeletal system and connective tissue; Z87.891 Personal history of nicotine dependence
CPT/HCPCS: 71046; 94664; 96372; 99283; J2930

== ENCOUNTER 2018-01-17 22:02 | Emergency (ER) | payer SELFPAY ==
[~2018-01-17] VITALS: Ht 167.6 cm; Wt 105.3 kg
[~2018-01-17 22:02] MED LIST changes: +CLON0.1T PO; -DICL50TA PO; -GABA300C5 PO; +MEDR4PAK PO; +VENTAER INH; +ZITHTAB PO
[2018-01-17 22:08] VITALS: BP 192/100; PULSE 92; RESP 18; TEMP 97.7; O2SAT 96
[2018-01-17] MEDS ORDERED: ACETAMINOPHEN 325 MG TAB PO ONE (22:15)
[2018-01-17] MEDS ORDERED: IBUP-232 PO (22:17)
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
--- NOTE | 2018-01-17 22:45 | RADRPT ---
EXAM DATE/TIME: 01/17/2018 22:17 [facility] COMPARISON: No previous studies available for comparison. INDICATIONS : Left medial ankle pain after ankle gave out while walking up stairs. MEDICAL HISTORY : None. SURGICAL HISTORY : None. ENCOUNTER: Initial ACUITY: 1 day PAIN SCORE: 6/10 LOCATION: Left ankle. FINDINGS: Three view exam was performed of the left ankle. The bony structures are in normal alignment. No ev idence of fracture, dislocation, or soft tissue swelling. The ankle mortise is intact. No radiopaqu e foreign bodies are seen. Bony mineralization is normal. CONCLUSION: 1. No acute fracture or dislocation. Raza Javier MD on January 17, 2018 at 22:42 Board Certified Radiologist. This report was verified electronically.
== END 2018-01-17 22:45 | disposition home or self-care (01) ==
LOC: PHEFT 22:02
DX: S93.402A Sprain of unspecified ligament of left ankle, initial encounter (principal); I10 Essential (primary) hypertension; F41.9 Anxiety disorder, unspecified; K21.9 Gastro-esophageal reflux disease without esophagitis; G47.30 Sleep apnea, unspecified; E03.9 Hypothyroidism, unspecified; X50.1XXA Overexertion from prolonged static or awkward postures, initial encounter; Z87.442 Personal history of urinary calculi; Z87.891 Personal history of nicotine dependence
CPT/HCPCS: 73610; 99283; L1906